=== PATIENT | female | born 2000 | race Caucasian/White ===

== ENCOUNTER → 2022-12-11 | Day surgery (SDC) | payer BC ==
[~2022-12-11] MED LIST: ACETAMINOPHEN 1000 MG/100 ML 100 ML IV ONE; ACETAMINOPHEN-1 EAC4 PO; BUPIVACAINE HCL 0.5% INJ 30 ML VIAL INJ ONE; DEXAMETHASONE SOD PHOS INJ 4 MG/ML SDV ONE; FENTANYL CITRATE/PF 100MCG/2 ML INJ ONE; KETOROLAC TROMETHAMINE 30 MG/ML VIAL ONE; LACTATED RINGER'S 1,000 ML ONE; LIDOCAINE HCL 2% LOCAL INJ 5 ML SDV VIAL INJ ONE; MUPIROCIN 2% OINT 22 GM TUBE ONE; ONDANSETRON HCL INJ 2MG/ML 2ML 2 MG/ML VIAL ONE; POVIDONE IODINE 0.05% 0.05 % ML PO ONE; PROPOFOL IV EMULSION 10 MG/ML 20 ML VIAL ONE; SEVOFLURANE INHAL SOLN 250 ML PEN BTL ONE
[2022-12-11 09:20] VITALS: BP 118/74
== END | disposition home or self-care (01) ==
LOC: OR 06:00
PROVIDERS: ATTEND Plastic Surgery
DX: M67.432 Ganglion, left wrist (principal)
CPT/HCPCS: 25111; 81025; 88304; J0131; J0690; J1100; J1885; J2001; J2405; J2704; J3010; J7121